=== PATIENT | male | born 1960 | race Two or more races ===

== ENCOUNTER 2018-07-07 12:46 | Inpatient (IN) | END 2018-07-07 19:00 | disposition home or self-care (01) | DRG 312 ==

== ENCOUNTER 2018-08-24 18:07 | Observation (INO) | payer BC ==
[~2018-08-24] VITALS: Wt 89.0 kg
[~2018-08-24 18:07] MED LIST: AMLO-147 PO; ASPI-903 PO; BENA10TA4 PO; CARV3.1260 PO; CLOP75TA28 PO; FAMO40TA5 PO; FENO135C4 PO; LOSA50TA2 PO; PRAV40TA76 PO
[2018-08-24] MEDS ORDERED: ASPIRIN 325 MG TAB PO STA (18:26)
[2018-08-24] MEDS ORDERED: NITROGLYCERIN (SL) 0.4 MG TAB SL ONE (18:30)
--- NOTE | 2018-08-24 18:36 | ERD ---
ER Documentation Chief Complaint Chief Complaint sob,htn HPI 57-year-old. Patient has a history of coronary disease, hypertension who presents emergency with generalized malaise. He is occasionally having shortness of breath and dyspnea on exertion as well as chest discomfort. He notes his blood pressure has been out of control for 3 days despite compliance with medication. He denies any current chest pain at this time. No headache at this time. No mid back pain. During the patient's encounter translation services were utilized Language: [Aremenian] Source: [in person] ROS All systems reviewed and are negative except as per history of present illness. Medications Home Meds Active Scripts Clopidogrel Bisulfate (Clopidogrel) 75 Mg Tablet, 75 MG PO DAILY for 30 Days, TAB Prov:YASMINE WALKER 07/07/18 Reported Medications Aspirin (Aspir-Low) 81 Mg Tablet.dr, 81 MG PO DAILY 08/24/18 Losartan Potassium* (Losartan Potassium*) 50 Mg Tablet, 50 MG PO DAILY, TAB 08/24/18 Pravastatin Sodium* (Pravastatin Sodium*) 40 Mg Tablet, 40 MG PO HS, TAB 07/05/18 Amlodipine Besylate* (Amlodipine Besylate*) 10 Mg Tablet, 5 MG PO BID, #30 TAB 07/05/18 Fenofibric Acid (Choline) (Fenofibric Acid) 135 Mg Capsule.dr, 135 MG PO DAILY, TAB 07/05/18 Famotidine* (Famotidine*) 40 Mg Tablet, 40 MG PO HS, #30 TAB 07/05/18 Carvedilol* (Carvedilol*) 3.125 Mg Tablet, 3.125 MG PO BID, #60 TAB 07/05/18 Discontinued Reported Medications Benazepril Hcl* (Benazepril Hcl*) 10 Mg Tablet, 10 MG PO BID, #60 TAB 07/05/18 Aspirin* (Aspirin* Chew) 81 Mg Tab.chew, 81 MG PO DAILY, TAB.CHEW 07/05/18 Discontinued Scripts Losartan Potassium* (Cozaar*) 50 Mg Tablet, 50 MG PO BID for 30 Days, TAB Prov:YASMINE WALKER 07/07/18 Allergies Allergies: Coded Allergies: No Known Allergy (Unverified , 08/24/18) PMhx/Soc History of Surgery: Yes (STENTS X 2(2009 AND 2017);) Anesthesia Reaction: No Hx Neurological Disorder: No Hx Respiratory Disorders: No Hx Cardiac Disorders: Yes (HTN;CAD;HIGH CHOLESTEROL;RI;) Hx Psychiatric Problems: No Hx Miscellaneous Medical Probl: No Hx Alcohol Use: No Hx Substance Use: No Hx Tobacco Use: Yes Smoking Status: Never smoker FmHx Family History: No diabetes Physical Exam Vitals Vital Signs Date Temp Pulse Resp B/P (MAP) Pulse Ox O2 O2 Flow FiO2 Time Delivery Rate 08/24/18 78 16 166/101 97 Room Air 19:00 (122) 08/24/18 98.2 81 18 206/128 99 18:13 (154) Physical Exam General: Well developed, well nourished, no acute distress Head: Normocephalic, atraumatic. Eyes: Pupils equally reactive, EOM intact ENT: Moist mucous membranes Neck: Supple, no lymphadenopathy Respiratory: Lungs clear bilaterally, no distress Cardiovascular: RRR, no murmurs, rubs, or gallops Abdominal: Soft, non-tender, non-distended, no peritoneal signs : Deferred MSK: Scant bilateral lower extremity edema, no unilateral swelling, 5/5 strength Neurologic: Alert and oriented, moving all extremities, normal speech, no focal weakness, no cerebellar signs Skin: No rash Psych: Normal mood Result Diagram: 08/24/18182408/24/181824 Results 24 hrs Laboratory Tests Test 08/24/18 18:25 White Blood Count 7.5 10^3/ul Red Blood Count 5.12 10^6/ul Hemoglobin 15.6 g/dl Hematocrit 46.7 % Mean Corpuscular Volume 91.2 fl Mean Corpuscular Hemoglobin 30.5 pg Mean Corpuscular Hemoglobin Concent 33.4 g/dl Red Cell Distribution Width 12.7 % Platelet Count 196 10^3/UL Mean Platelet Volume 9.9 fl Immature Granulocytes % 0.300 % Neutrophils % 60.6 % Lymphocytes % 22.4 % Monocytes % 10.3 % Eosinophils % 5.7 % Basophils % 0.7 % Nucleated Red Blood Cells % 0.0 /100WBC Immature Granulocytes # 0.020 10^3/ul Neutrophils # 4.5 10^3/ul Lymphocytes # 1.7 10^3/ul Monocytes # 0.8 10^3/ul Eosinophils # 0.4 10^3/ul Basophils # 0.1 10^3/ul Nucleated Red Blood Cells # 0.0 10^3/ul Prothrombin Time 11.8 Sec Prothrombin Time Ratio 0.9 INR International Normalized Ratio 0.86 Activated Partial Thromboplast Time 25.1 Sec Sodium Level 139 mmol/L Potassium Level 3.5 mmol/L Chloride Level 99 mmol/L Carbon Dioxide Level 30 mmol/L Anion Gap 10 Blood Urea Nitrogen 17 mg/dl Creatinine 1.13 mg/dl Est Glomerular Filtrat Rate mL/min > 60 mL/min Glucose Level 111 mg/dl Calcium Level 9.8 mg/dl Troponin I 0.018 ng/ml B-Type Natriuretic Peptide 358 PG/ML Current Medications Medications Dose Sig/Carito Start Time Status Last (Trade) Ordered Route PRN Stop Time Admin Dose Reason Admin Aspirin 325 mg ONCE STAT 08/24/18 DC 08/24/18 (Aspirin) PO 18:26 18:32 08/24/18 18:27 1 tab ONCE ONCE 08/24/18 DC 08/24/18 Nitroglycerin SL 18:30 18:33 08/24/18 18:31 (Nitroglyceri n (Sl Tab) 0.4 Mg) 650 mg ONCE ONCE 08/24/18 DC 08/24/18 Acetaminophen PO 19:00 19:09 (Tylenol 08/24/18 19:01 Tab) Ondansetron 4 mg ER BRIDGE 08/24/18 HCl (Zofran PRN IV 20:30 Inj) NAUSEA AND/OR 08/25/18 20:29 VOMITING 650 mg ER BRIDGE 08/24/18 Acetaminophen PRN PO MILD 20:30 (Tylenol PAIN(1-3)OR 08/25/18 20:29 Tab) ELEVATED TEMP Procedures/MDM EKG, MONITORS, & DIAGNOSTIC IMAGING: EKG: I reviewed and interpreted a 12-lead EKG. Rhythm: Normal sinus rhythm ST Changes: No contiguous ST segment elevations T waves: No contiguous T wave inversions Impression: No evidence of acute cardiac ischemia Repeat EKG: EKG: I reviewed and interpreted a 12-lead EKG. Rhythm: Normal sinus rhythm ST Changes: No contiguous ST segment elevations T waves: No contiguous T wave inversions Impression: No evidence of acute cardiac ischemia Chest x-ray: I reviewed and interpreted a 1 view of the chest Mediastinum: No enlargement Cardiac silhouette: No cardiomegaly Airspace: Clear lung guerrero bilaterally without evidence of pneumothorax Bones: No evidence of fracture PROCEDURES: None LAB INTERPRETATION: * Negative troponin * Indeterminate BNP MEDICAL DECISION MAKING: The patient's history, physical exam and clinical presentation is concerning for possible cardiogenic etiology and acute coronary syndrome in the setting of hypertensive urgency versus emergency. Consider possible mild CHF as well. Based on the patient's clinical exam and history and risk factors, I have a much lower clinical concern for pulmonary embolism, acute aortic dissection, pneumothorax, pneumonia, cardiac tamponade HEART Score: 4 MACE Rate: 16.6% Shared Decision Making: We had a conversation regarding risk stratification, MACE rate, and the risks, benefits, alternatives of disposition planning options. Disposition planning: Admit ER COURSE: * The patient has stigmata very mild volume overload. The patient will benefit from nitroglycerin. Hold on Lasix until the patient's chest x-ray is resulted given normal lung findings at this time. The patient needs blood pressure control, ACS rule out and inpatient hospitalization. * ASA given * The patient's mean arterial blood pressure has been reduced by 20%. CONSULTATION: None DISPOSITION PLAN: Telemetry admission for management of chest pain to rule out acute coronary syndrome, serial enzymes, risk stratification and consideration of provocative testing CONSULTATION: Accepting care team and consultations: I discussed the current laboratory data, diagnostic imaging and emergency care provided. Admitting team: Dr. Ch Admitting team indication: Insurance directed Departure Diagnosis: Primary Impression: Hypertensive urgency Additional Impression: Chest pain Chest pain type: unspecified Qualified Codes: R07.9 - Chest pain, unspecified Condition: Stable LEONARDO BURGOS MD Aug 24, 2018 18:36
[2018-08-24] MEDS ORDERED: ASPI81TA50 PO (18:40)
[2018-08-24] MEDS ORDERED: LOSA50TA14 PO (18:40)
[2018-08-24] MEDS ORDERED: ACETAMINOPHEN 325 MG TAB PO ONE (19:00)
[2018-08-24] MEDS ORDERED: ONDANSETRON 4 MG INJ IV PRN (20:30)
[2018-08-24] MEDS ORDERED: ACETAMINOPHEN 325 MG TAB PO PRN (20:30)
[2018-08-25] VITALS (9 sets, daily range): BP systolic 139–168; BP diastolic 78–108; PULSE 73–93; RESP 17–20
--- NOTE | 2018-08-25 01:00 | NUR ---
Patient brought in from ED, oriented patient to room and unit,a/o x4, denies any c/o pain, admission assessment done, patient was hypertensive in ED, however most recent BP was lower, Patient blood pressure in floor is 180/100, called Dr. Ch for admitting orders and to make him aware of patient bp, message and paged left on voicemail.
[2018-08-25] MEDS ORDERED: NITROGLYCERIN (SL) 0.4 MG TAB SL PRN (02:00)
[2018-08-25] MEDS ORDERED: hydrALAzine 20 MG INJ IV PRN (02:00)
--- NOTE | 2018-08-25 02:34 | NUR ---
patient got up from bed diaphoretic, prn hydralazine given earlier for elevated blood pressure, patient denies any c/o pain, vital signs stable , BP 100/63, p 78, 02sat 97% on RA, denies any c/o pain. reoriented patient back to bed, will continue to monitor.
--- NOTE | 2018-08-25 03:45 | NUR ---
EOSS Patient called family members , spoke with patient daughter and explained plan of care , vital signs stable , patient denies pain but verbalizes feeling nauseous, Zofran given as ordered. Will continue to monitor.
--- NOTE | 2018-08-25 06:06 | NUR ---
EOSS Patient stable, vital signs stable, denies any c/o pain at this time, denies feeling nauseous.All needs met, Report will be endorsed to oncoming shift.
[2018-08-25] MEDS: ASPIRIN 325 MG TAB PO SCH (08:52)
[2018-08-25] MEDS: ACETAMINOPHEN 325 MG TAB PO PRN ×2 (08:57→15:53)
[2018-08-25] MEDS: ENOXAPARIN 30 MG/0.3 ML SYG SC SCH (08:58)
--- NOTE | 2018-08-25 12:56 | RADRPT ---
Vent Rate: 86 bpm RR Interval: 0 msec [place] Interval: 126 msec QRS Duration: 98 msec QT Interval: 426 msec QTC Interval: 509 msec P-R-T [place]: 50 - 43 - 0 degrees Normal sinus rhythm Possible Left atrial enlargement Cannot rule out Inferior infarct , age undetermined ST amp; T wave abnormality, consider lateral ischemia Prolonged QT Abnormal ECG Electronically Signed By: Esteban [place] [id number]
--- NOTE | 2018-08-25 14:25 | HP ---
Date/Time of Note Date/Time of Note DATE: 08/25/18 TIME: 14:21 Assessment/Plan VTE Prophylaxis Risk score (from [facility] [place])>0 risk: 1 SCD applied (from [facility] [place]): No SCD contraindicated: other Pharmacological prophylaxis: other Lines/Catheters IV Catheter Type (from [facility]): Saline Lock Assessment/Plan Assessment/Plan - Acute Chest pain, assess for acute coronary syndrome with negative troponins x3 with recent stent in 06/2018. - admit to tele --per cardio - Hypertensive urgency/emergency- BP improving -per cardio - Dyslipidemia. - History of percutaneous transluminal coronary angioplasty and stent placement, most recently to right coronary artery proximal in 06/2018 at [facility]. - Remote tobacco, quit x3 months. - reinforce smoking cessation - Cardiomyopathy with mildly depressed left ventricular ejection fraction approximately 45% to 50% by echo in 06/2018. Patient seen in collaboration with Arias Ch. staff Result Diagram: 08/24/18 1825 08/24/181824 Results 24hrs Laboratory Tests Test 08/24/18 18:25 08/25/18 00:55 08/25/18 06:15 08/25/18 11:46 White Blood Count 7.5 Red Blood Count 5.12 # Hemoglobin 15.6 # Hematocrit 46.7 # Mean Corpuscular 91.2 Volume Mean Corpuscular 30.5 Hemoglobin Mean Corpuscular 33.4 Hemoglobin Concent Red Cell 12.7 Distribution Width Platelet Count 196 Mean Platelet Volume 9.9 Immature 0.300 Granulocytes % Neutrophils % 60.6 Lymphocytes % 22.4 Monocytes % 10.3 Eosinophils % 5.7 Basophils % 0.7 Nucleated Red Blood 0.0 Cells % Immature 0.020 Granulocytes # Neutrophils # 4.5 Lymphocytes # 1.7 Monocytes # 0.8 Eosinophils # 0.4 Basophils # 0.1 Nucleated Red Blood 0.0 Cells # Prothrombin Time 11.8 L Prothrombin Time 0.9 Ratio INR International 0.86 Normalized Ratio Activated 25.1 Partial Thromboplast Time Sodium Level 139 Potassium Level 3.5 Chloride Level 99 Carbon Dioxide Level 30 Anion Gap 10 Blood Urea Nitrogen 17 Creatinine 1.13 Est Glomerular > 60 Filtrat Rate mL/min Glucose Level 111 Calcium Level 9.8 Troponin I 0.018 0.025 0.082 0.051 B-Type Natriuretic 358 H Peptide Creatine Kinase 35 32 Creatine Kinase 3.0 2.7 Index Creatinine Kinase MB 1.05 0.87 (Mass) Triglycerides Level 233 H Cholesterol Level 248 H LDL Cholesterol, 163 Calculated HDL Cholesterol 38 Cholesterol/HDL 6.5 Ratio HPI/ROS Admit Date/Time Admit Date/Time Aug 24, 2018 at 20:24 ROS HPI This is a 57-year-old male patient with history of coronary disease, hypertension, status post recent PTCA and stent placement on 06/28/2018 at [facility] to proximal right coronary artery and prior to that in 2009, hypertension, dyslipidemia, quit tobacco x3 months. Patient is admitted with uncontrolled systolic blood pressure associated with substernal chest pain, shor tness of breath poorly described. On admission his temperature was 98.2, blood pressure 206/128, pulse 81, respiratory rate 18, sating 99%. The patient's labs revealed a white blood cell count of 7.5, hemoglobin 13.6, platelet count of 196, a sodium of 139, potassium 3.5, creatinine of 1.1, BUN 17, troponin negative, BNP of 358, LDL 163, HDL of 38. The patient's electrocardiogram revealed normal sinus rhythm, rate of 79, normal axis, with inferior Q's, borderline voltage criteria for left ventricular hypertrophy. The patient's chest x-ray was stable, mild cardiac silhouette enlarged without evidence for acute cardiac pathology or change from 06/2018. The patient denies chest pain at this time. Patient is admitted under Dr Ch for further treatment/evaluation. Plan of care dw staff ROS All systems reviewed and are negative except as per history of present illness. Medications Home Meds Active Scripts Clopidogrel Bisulfate (Clopidogrel) 75 Mg Tablet, 75 MG PO DAILY for 30 Days, TAB Prov:YASMINE WALKER 07/07/18 Reported Medications Aspirin (Aspir-Low) 81 Mg Tablet., 81 MG PO DAILY 08/24/18 Losartan Potassium* (Losartan Potassium*) 50 Mg Tablet, 50 MG PO DAILY, TAB 08/24/18 Pravastatin Sodium* (Pravastatin Sodium*) 40 Mg Tablet, 40 MG PO HS, TAB 07/05/18 Amlodipine Besylate* (Amlodipine Besylate*) 10 Mg Tablet, 5 MG PO BID, #30 TAB 07/05/18 Fenofibric Acid (Choline) (Fenofibric Acid) 135 Mg Capsule., 135 MG PO DAILY, TAB 07/05/18 Famotidine* (Famotidine*) 40 Mg Tablet, 40 MG PO HS, #30 TAB 07/05/18 Carvedilol* (Carvedilol*) 3.125 Mg Tablet, 3.125 MG PO BID, #60 TAB 07/05/18 Discontinued Reported Medications Benazepril Hcl* (Benazepril Hcl*) 10 Mg Tablet, 10 MG PO BID, #60 TAB 07/05/18 Aspirin* (Aspirin* Chew) 81 Mg Tab.chew, 81 MG PO DAILY, TAB.CHEW 07/05/18 Discontinued Scripts Losartan Potassium* (Cozaar*) 50 Mg Tablet, 50 MG PO BID for 30 Days, TAB Prov:YASMINE WALKER 07/07/18 Allergies Allergies: Coded Allergies: No Known Allergy (Unverified , 08/24/18) PMhx/Soc History of Surgery: Yes (STENTS X 2(2009 AND 2017);) Anesthesia Reaction: No Hx Neurological Disorder: No Hx Respiratory Disorders: No Hx Cardiac Disorders: Yes (HTN;CAD;HIGH CHOLESTEROL;FL;) Hx Psychiatric Problems: No Hx Miscellaneous Medical Probl: No Hx Alcohol Use: No Hx Substance Use: No Hx Tobacco Use: Yes Smoking Status: Never smoker FmHx Family History: No diabetes PMH/Family/Social Past Medical History PMhx/Soc History of Surgery: Yes (STENTS X 2(2009 AND 2017);) Anesthesia Reaction: No Hx Neurological Disorder: No Hx Respiratory Disorders: No Hx Cardiac Disorders: Yes (HTN;CAD;HIGH CHOLESTEROL;FL;) Hx Psychiatric Problems: No Hx Miscellaneous Medical Probl: No Hx Alcohol Use: No Hx Substance Use: No Hx Tobacco Use: Yes Smoking Status: Never smoker FmHx Family History: No diabetes Medications Current Medications Ondansetron HCl (Zofran Inj) 4 mg ER BRIDGE PRN IV NAUSEA AND/OR VOMITING Last administered on 08/25/18at 03:57; Admin Dose 4 MG; Start 08/24/18 at 20:30; Stop 08/25/18 at 20:29 Acetaminophen (Tylenol Tab) 650 mg ER BRIDGE PRN PO MILD PAIN(1-3)OR ELEVATED TEMP; Start 08/24/18 at 20:30; Stop 08/25/18 at 20:29 Hydralazine HCl (Apresoline) 20 mg Q6H PRN IV ELEVATED BLOOD PRESSURE Last administered on 08/25/18 02:05; Admin Dose 20 MG; Start 08/25/18 at 02:00 Aspirin (Aspirin) 325 mg DAILY PO Last administered on 08/25/18at 08:52; Admin Dose 325 MG; Start 08/25/18 at 09:00 Nitroglycerin (Nitroglycerin (Sl Tab) 0.4 Mg) 1 tab Q5M PRN SL ANGINA; Start 08/25/18 at 02:00 Acetaminophen (Tylenol Tab) 650 mg Q6H PRN PO MILD PAIN(1-3)OR ELEVATED TEMP Last administered on 08/25/18 08:57; Admin Dose 650 MG; Start 08/25/18 at 02:00 Carvedilol (Coreg) 6.25 mg BID PO Last administered on 08/25/18 08:53; Admin Dose 6.25 MG; Start 08/25/18 at 09:00 Enoxaparin Sodium (Lovenox) 30 mg DAILY SC Last administered on 08/25/18at 08:58; Admin Dose 30 MG; Start 08/25/18 at 09:00 Coded Allergies: No Known Allergy (Unverified , 08/24/18) Past Surgical History Past Surgical Hx: other Family History Significant Family History: other Social History Smoking Status: Former smoker Exam/Review of Systems Vital Signs Vitals Vital Signs Date Temp Pulse Resp B/P (MAP) Pulse Ox O2 O2 Flow FiO2 Time Delivery Rate 08/25/18 73 12:00 08/25/18 98.7 17 149/90 98 11:58 (109) 08/24/18 Room Air 23:39 Exam Constitutional: alert, oriented, well developed Psych: nl mood/affect Head: atraumatic Eyes: nl lids ENMT: nl external ears & nose Respiratory: clear to auscultation Cardiovascular: nl pulses, other (SR . HR 60) Gastrointestinal: soft, non-tender Musculoskeletal: nl extremities to inspection Extremities: normal pulses JUSTYNA MENDOZA Aug 25, 2018 14:25
--- NOTE | 2018-08-25 15:46 | CONS ---
DATE OF ADMISSION: 08/24/2018 DATE OF CONSULTATION: 08/25/2018 TYPE OF CONSULTATION: Cardiology. REASON FOR CONSULTATION: Hypertensive urgency/emergency. REQUESTING PHYSICIAN: Akash Ch MD HISTORY OF PRESENT ILLNESS: Mr. Norwood is a 57-year-old male with history of coronary artery dise ase, status post recent PTCA and stent placement on 06/28/2018 at [facility] to proximal righ t coronary artery and prior to that in 2009, hypertension, dyslipidemia, quit tobacco x3 months, who presented with uncontrolled systolic blood pressure associated with substernal chest pain, shortness of breath poorly described. Upon arrival, temperature was 98.2, blood pressure 206/128, pulse 81, re spiratory rate 18, satting 99%. The patient's labs revealed a white blood cell count of 7.5, hemoglo bin 13.6, platelet count of 196, a sodium of 139, potassium 3.5, creatinine of 1.1, BUN 17, troponin negative, BNP of 358, LDL 163, HDL of 38. The patient's electrocardiogram revealed normal sinus rhyt hm, rate of 79, normal axis, with inferior Q's, borderline voltage criteria for left ventricular hype rtrophy. The patient's chest x-ray was stable, mild cardiac silhouette enlarged without evidence for acute cardiac pathology or change from 06/2018. The patient has been admitted to the floor and [facility] e admit to floor has been on telemetry monitoring revealing sinus rhythm and has had down trending of systolic blood pressure most recently of 149/90. The patient denies chest pain at this time. PAST MEDICAL HISTORY: As above in HPI. MEDICATIONS CURRENTLY IN HOSPITAL: 1. Protonix 40 mg daily. 2. Aspirin 325 mg daily. 3. Carvedilol 6.25 mg p.o. b.i.d. 4. Lovenox 40 mg subcutaneously daily. 5. Hydralazine 10 mg IV q.6 p.r.n. 6. Sublingual nitroglycerin p.r.n. 7. Tylenol p.r.n. 8. Zofran p.r.n. ALLERGIES: NO KNOWN DRUG ALLERGIES. SOCIAL HISTORY: No current tobacco. Social EtOH. No illicit drug use. Quit tobacco x3 months. FAMILY HISTORY: No history of sudden cardiac or early CAD. REVIEW OF SYSTEMS: As above in HPI. CONSTITUTIONAL: No fevers, chills. PULMONARY: Positive shortness of breath. CARDIOVASCULAR: Intermittent chest pain. GASTROINTESTINAL: No vomiting. GENITOURINARY: No hematuria. MUSCULOSKELETAL: Degenerative joint disease. PSYCHIATRIC: The patient has depression. NEUROLOGIC: No documented history of CVA. PHYSICAL EXAMINATION: VITAL SIGNS: Temperature 98.7, blood pressure 149/90, pulse 82, respiration is 17, satting 98%. GENERAL: The patient is alert, awake, in no acute distress. NECK: JVP is approximately 8 to 9 cm of water. CHEST: Fair air movement throughout. HEART: Regular rate and rhythm. Normal S1, S2, I/ systolic murmur, nondisplaced PMI. ABDOMEN: Positive bowel sounds, soft. EXTREMITIES: No significant pitting edema, 1+ pulses bilateral posterior tibial. LABORATORIES: Most recently from today, troponin negative x3. LDL 163, HDL 38. IMAGING STUDIES: As above in HPI. No further imaging studies for my review at this time. ELECTROCARDIOGRAM: As above in HPI with most recently from today revealing normal sinus rhythm, rate 86, normal axis with biphasic T-wave abnormalities in lateral leads to T-wave inversions. IMPRESSION: 1. Chest pain, assess for acute coronary syndrome with negative troponins x3 with recent stent in . 2. Hypertensive urgency/emergency, slowly down trending on oral antihypertensives and IV push p.r.n. antihypertensives. 3. Dyslipidemia. 4. History of percutaneous transluminal coronary angioplasty and stent placement, [facility]. 5. Remote tobacco, quit x3 months. 6. Cardiomyopathy with mildly depressed left ventricular ejection fraction approximately 45% to 50% by echo in 06/2018. RECOMMENDATIONS: 1. At this time, we would maintain the patient on telemetry monitoring to follow rhythm and rates cl osely. 2. The patient is status post rule out for myocardial infarction with negative troponin x3. 3. We will continue the patient's aspirin and the patient should be on a second antiplatelet agent w hich was not initiated and thus we will reinitiate that for stent patency with Plavix. 4. Continue the patient's carvedilol, but up titrate to improve overall systolic blood pressure cont rol and the patient received IV push p.r.n. We will additionally place the patient on GANESH inhibitor and follow blood pressure closely. 5. We will initiate the patient on statin therapy in the setting of elevated LDL and known coronary artery disease. 6. Further recommendations will be made as the patient progresses through his inpatient hospital cli nical course. Dictated By: JYOTI BARBA/NTS Conf#: [id number] DID#: [id number] CC: AKASH CH MD;*EndCC*
--- NOTE | 2018-08-25 18:11 | NUR ---
EOSS: Pt AOx 4, Sr on tele, VSS, c/o headache, PRN tylenol administered and was effective. Stable for handoff to oncoming shift.
[2018-08-25] MEDS: AMLODIPINE 5 MG TAB PO SCH (20:24)
[2018-08-25] MEDS ORDERED: ATORVASTATIN 10 MG TAB PO SCH (21:00)
[2018-08-26] VITALS (9 sets, daily range): BP systolic 144–165; BP diastolic 93–103; PULSE 59–95; RESP 20
[2018-08-26] MEDS ORDERED: PANTOPRAZOLE (EC) 40 MG TAB PO SCH (06:00)
--- NOTE | 2018-08-26 06:59 | NUR ---
EOSS Patient remained stable, no significant change during the shift,Will be endorsed to day shift for continuity of care.
[2018-08-26] MEDS: AMLODIPINE 5 MG TAB PO SCH (08:29)
[2018-08-26] MEDS: ASPIRIN 325 MG TAB PO SCH (08:29)
[2018-08-26] MEDS: ENOXAPARIN 30 MG/0.3 ML SYG SC SCH (08:35)
[2018-08-26] MEDS ORDERED: LOSARTAN 50 MG TAB PO SCH (09:00)
[2018-08-26] MEDS ORDERED: CLOPIDOGREL 75 MG TAB PO SCH (09:00)
--- NOTE | 2018-08-26 12:44 | CONS ---
Date/Time of Note Date/Time of Note DATE: 08/26/18 TIME: 12:41 Assessment/Plan Assessment/Plan Assessment/Plan 1. Chest pain, assess for acute coronary syndrome with negative troponins x3 with recent stent in 06/2018- r/o NH - no intervention planned now. 2. Hypertensive urgency/emergency, slowly down trending on oral antihypertensives and IV push p.r.n. antihypertensives - BP better overall - will adjust therapy as needed. 3. Dyslipidemia. 4. History of percutaneous transluminal coronary angioplasty and stent placement, most recently to right coronary artery proximal in 06/2018 at [facility]- con't dual anti-coaulation. 5. Remote tobacco, quit x3 months. 6. Cardiomyopathy with mildly depressed left ventricular ejection fraction approximately 45% to 50% by echo in 06/2018. No indication for ICD. Result Diagram: 08/24/18182408/24/181824 Consultation Date/Type/Reason Admit Date/Time Aug 24, 2018 at 20:24 Initial Consult Date 24 HR Interval Summary Free Text/Dictation NO acute events - BP in good range no - no CP noted - will monitor clinically - BP better. ROS: No fever, no chills, no nausea, no vomiting, no diarrhea/constipation No recent weight changes No chest pain, no PND, no orthopnea - mild SOB No dizziness, blurred vision No thirst, no heat or cold intolerance Exam/Review of Systems Vital Signs Vitals Vital Signs Date Temp Pulse Resp B/P (MAP) Pulse Ox O2 O2 Flow FiO2 Time Delivery Rate 08/26/18 98.3 66 20 154/93 96 11:21 (113) 08/24/18 Room Air 23:39 Intake and Output 08/25/18 08/25/18 08/26/18 1515:00 23:00 07:00 IntakeIntake Total 400 ml 500 ml BalanceBalance 400 ml 500 ml Exam General: WN/WD/NAD, AOx 3 HEENT: Unicetric/atraumatic/EOMI (follow commands) NECK: JVD elevated, no thyromegaly Lymph: no lymphadenopathy HEART: regular with no S3, II/ systolic murmur at apex LUNGS: Coarse sounds ABD: soft, NT, ND, +BS : Intact Neuro: non focal SKIN: chronic changes EXT: trace edema Medications Medications Current Medications Hydralazine HCl (Apresoline) 20 mg Q6H PRN IV ELEVATED BLOOD PRESSURE Last administered on 08/25/18 02:05; Admin Dose 20 MG; Start 08/25/18 at 02:00 Aspirin (Aspirin) 325 mg DAILY PO Last administered on 08/26/18 08:29; Admin Dose 325 MG; Start 08/25/18 at 09:00 Nitroglycerin (Nitroglycerin (Sl Tab) 0.4 Mg) 1 tab Q5M PRN SL ANGINA; Start 08/25/18 at 02:00 Acetaminophen (Tylenol Tab) 650 mg Q6H PRN PO MILD PAIN(1-3)OR ELEVATED TEMP Last administered on 08/25/18 15:53; Admin Dose 650 MG; Start 08/25/18 at 02:00 Carvedilol (Coreg) 6.25 mg BID PO Last administered on 08/26/18 08:29; Admin Dose 6.25 MG; Start 08/25/18 at 09:00 Enoxaparin Sodium (Lovenox) 30 mg DAILY SC Last administered on 08/26/18 08:35; Admin Dose 30 MG; Start 08/25/18 at 09:00 Pantoprazole (Protonix Tab) 40 mg DAILY@06 PO Last administered on 08/26/18 05:46; Admin Dose 40 MG; Start 08/26/18 at 06:00 Amlodipine Besylate (Norvasc) 5 mg BID PO Last administered on 08/26/18 08:29; Admin Dose 5 MG; Start 08/25/18 at 21:00 Clopidogrel Bisulfate (plaVIX) 75 mg DAILY PO Last administered on 08/26/18 08:29; Admin Dose 75 MG; Start 08/26/18 at 09:00 Losartan Potassium (Cozaar) 50 mg DAILY PO Last administered on 08/26/18 08:29; Admin Dose 50 MG; Start 08/26/18 at 09:00 Atorvastatin Calcium (Lipitor) 10 mg DAILY@21 PO Last administered on 08/25/18 20:23; Admin Dose 10 MG; Start 08/25/18 at 21:00 ARTHUR OCONNELL MD Aug 26, 2018 12:44
--- NOTE | 2018-08-26 17:10 | PDOCDIS ---
Discharge Instructions CONDITION [id number] Patient Condition: [id number] Stable HOME CARE INSTRUCTIONS: [id number] Diet Instructions: [id number] Low Fat /Cholesterol ACTIVITY: [id number] Activity Restrictions: [id number] Slowly Increase Activity Rest between Activity Avoid heavy lifting Do not Drive Do not operate Machinery Do not operate Power Tool Avoid Heavy Housework [id number] Bathing Restrictions: [id number] Sponge Bath FOLLOW UP/APPOINTMENTS Follow-up Plan - FU with Primary MD in 1 week - FU with cardiology as recommended - Call 911 or go to the nearest hospital if symptoms get worse.Patient and her daughter verbalized understanding dc instructions - staff / JUSTYNA Nuñez Aug 26, 2018 17:10
[2018-08-26] MEDS ORDERED: LOSA50TA14 PO (17:13)
--- NOTE | 2018-08-26 17:25 | NUR ---
Patient cleared for discharge home, vitals stable, blood pressure maintained in the 140-160s and confirmed with Dr. Scott and Dr Dima monson to discharge home to follow-up with outpatient psychiatric nursing aide in 1 week to titrate cardiac medications, library monitor discontinued and returned to nursing station, IV discontinued, belongings returned to patient, discharge packet reviewed and signed, prescription given to patient, family escorted patient off unit.
== END 2018-08-26 17:25 | disposition home or self-care (01) ==
LOC: E/R 18:07 → 6WM 20:24
PROVIDERS: ADMIT Internal Medicine; ATTEND Internal Medicine
DX: R07.9 Chest pain, unspecified (principal); I16.0 Hypertensive urgency; E78.5 Hyperlipidemia, unspecified; I42.9 Cardiomyopathy, unspecified
CPT/HCPCS: 36415; 71045; 80048; 80061; 82550; 82553; 83880; 84484; 85025; 85610; 85730; 93005; 99285; J0360; J1650; J2405; Z7500; Z7610; G0378